=== PATIENT | female | born 1995 | race Caucasian/White ===

== ENCOUNTER 2017-02-19 23:59 | Emergency (ER) | payer OTHER ==
[~2017-02-19 23:59] MED LIST: ACETAMINOPHEN PO; DAPTOMYCIN500 MG IV; FAMOTIDINE PO; GUAIFENESIN DM118 ML PO; HYDROCORTISONE30 G2 EXT; LORTAB 5-325 M1 EACH PO; MOTRIN600 M2 PO; NICOTINE TRANSD21 MG EXT; NO MEDICATIONS; PAIN RELIEF650 MG PO; PERCOCET5/325 PO; PHENERGAN25 MG PO; REGLAN10 MG PO; REMERON15 MG PO; VISTARIL PO; ZYVOX600 MG PO
== END 2017-02-20 02:20 | disposition left against medical advice (07) ==
LOC: CED 23:59
DX: Z53.21 Procedure and treatment not carried out due to patient leaving prior to being seen by health care provider (principal)

== ENCOUNTER 2017-02-24 23:59 | Emergency (ER) | payer OTHER ==
[2017-02-25 01:28] LABS: BASOPHIL# 0.1 X10e3 (0-0.3); BASOPHIL% 0.4 % (0-2.5); DIFF IND YES; EOSINOPHIL# 0.1 X10e3 (0-0.7); EOSINOPHIL% 0.7 % (0.0-7.0); HEMATOCRIT 35.4 % (35.0-45.0); HEMOGLOBIN 11.7 gm/dL (12.0-16.0); LYMPHOCYTE# 2.7 X10e3 (1.0-3.5); LYMPHOCYTE% 17.4 % (17.0-45.0); MEAN CORPUSCULAR HEMOGLOBIN 29.1 PG (28-34); MEAN CORPUSCULAR HGB CONC 33.1 g/dL (30-36); MEAN PLATELET VOLUME 8.5 FL (6.5-11.5); MONOCYTE# 0.9 X10e3 (0-1.0); MONOCYTE% 5.8 % (3.0-12.0); NEUTROPHIL# 11.9 X10e3 (1.5-7.1); NEUTROPHIL% 75.7 % (40-75); PLATELET COUNT 336 X10e3 (140-420); RED BLOOD COUNT 4.02 X10e (3.90-5.30); RED CELL DISTRIBUTION WIDTH 15.2 % (11.0-15.5); WHITE BLOOD COUNT 15.7 X10e3 (4.0-10.5)
[2017-02-25 01:56] LABS: ANISOCYTOSIS SL; PLATELET ESTIMATE NORMAL (NORMAL); RBC NORMAL YES; SMUDGE CELLS 9 /100
== END 2017-02-25 02:00 | disposition home or self-care (01) ==
LOC: CED 23:59
PROVIDERS: Emergency Medicine
DX: L02.413 Cutaneous abscess of right upper limb (principal); F17.200 Nicotine dependence, unspecified, uncomplicated
CPT/HCPCS: 10060; 85025; 87040; 87070; 87077; 87186; 87205; 99283

== ENCOUNTER 2017-02-27 23:59 | Inpatient (IN) | payer OTHER ==
--- NOTE | ~2017-02-27 | CO ---
Unit #: [id number] #: [id number] Patient: YURIDIA KING [id number] [address] [address] [id number] I MR#: [id number] NAME: YURIDIA KING ROOM: 563 Age: 21 Sex: F Admission Date: 02/28/2017 : 1995 Attending Physician: Ulises Middleton M.D. Primary Care Physician: Primary Care Physician No Requesting Physician: Jacqueline Suh M.D. Consultation Date: 02/28/2017 CONSULTATION REPORT REASON FOR CONSULTATION Septic arthritis of sacroiliac joint. 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 In October of last year, she developed pseudomonas bacteremia and septic sacroiliac joint arthritis which was treated with IV antibiotics followed by transfer to [facility]. According to the patient, no surgery was done and she did receive antibiotics however she is not clear which one and for how long. Two days ago, she came to the ER with left wrist abscess which was drained which is growing MRSA. She came back later with progressive pain in the left side of the hip without any fever or chills. She had a fever of 102 apparently and was hospitalized. She is currently on vancomycin and cefepime. MRI of the pelvis is pending. Infectious Disease was consulted for further evaluation. Blood cultures are negative to date. Patient is fairly poor historian and is not interested in doing any details about current illness. According to her, she still uses IV heroin on a regular basis. PAST MEDICAL HISTORY 1. MRSA endocarditis, septic arthritis, septic pulmonary emboli. 2. Pseudomonas bacteremia with sacroiliac joint arthritis, treated at [facility]. 3. Hepatitis C. 4. IV drug use. 5. Medical noncompliance. 6. Anxiety and depression. HOME MEDICATIONS None. HOSPITAL MEDICATIONS 1. Vancomycin. 2. Cefepime. 3. Tylenol. 4. Bactroban. 5. Florastor. 6. Morphine ultra. 7. Phenergan. 8. IV fluids. ALLERGIES Unit #: [id number] #: [id number] Patient: YURIDIA KING None. SOCIAL HISTORY She lives with her father. She smokes cigarettes and uses heroin via IV route, free currently. She uses clean needles according to her. FAMILY HISTORY Negative and not contributory to the current illness. REVIEW OF SYSTEMS System review reveals left hip pain, fever, malaise, mild chill. No abdominal pain, diarrhea, dysuria, cough, chest pain, headache, mental status changes. PHYSICAL EXAMINATION VITAL SIGNS: Stable. Temperature 99.2, heart rate 100, respirations 18, blood pressure 120/60. T. max was recorded at 102.4 in the ER, about 24 ours ago. GENERAL: Young white female, who is awake and alert, in no acute distress. NECK: Supple. No JVD or edema. LUNGS: Clear. HEART: Normal. ABDOMEN: Soft, nontender. There is no rebound or guarding. Bowel sounds are normal. EXTREMITIES: Left heel wound had superficial abscess which has been drained. Range of motion of left wrist reveals in normal limits. She had some tenderness in the left hip with decreased range of motion. There is no obvious swelling or wound. NEUROLOGIC: Nonfocal. DIAGNOSTIC STUDIES LABORATORY: Urine drug screen was positive for amphetamines, marijuana and opiates. HIV test is negative. Lactic acid 1.3. Sodium 133, potassium 2.8, chloride 99, CO2 is 24, BUN 9, creatinine 0.6. White count 14.8, hemoglobin 11.4, platelets 308, neutrophils 77.8%. Wound culture from the wrist is growing MRSA. Blood cultures are negative at 24 hours. IMAGING: Chest x-ray shows no active disease. X-rays of the left hip shows normal findings. MRI is pending. IMPRESSION The main issue appears to be left wrist abscess due to MRSA which has been drained. The other issue is left hip pain which is chronic with a recent increase in pain. Relapse of sacroiliac arthritis is suspected. RECOMMENDATIONS 1. Pending cultures. 2. Agree with vancomycin and cefepime. 3. I agree with MRI of the hip. 4. Further recommendations will follow. Dictated by... Unit #: [id number] #: [id number] Patient: YURIDIA KING Charis Melo TD: 02/28/2017 18:43 JOB #: [id number] CONSULTATION REPORT Page 1 of 1 X Reji Aaron MD CONSULTATION REPORT
--- NOTE | ~2017-02-27 | CR150 ---
[facility] A Service of [facility] & [facility] RADIOLOGY TEXT RESULTS PATIENT: YURIDIA KING LOCATION: [facility] [id number] : 95 UNIT #: [id number] AGE: [address]: Jacqueline Suh MD SEX: F ORDER DR: [id number] [facility] [address] [facility]. [place], [place] [address] [id number] E MR#: [id number] Acc #: [id number] NAME: YURIDIA KING : 1995 SEX: F STUDY DATE/TIME: 02/28/2017 1:06 UNIT: [facility] ROOM: STUDY DESCRIPTION: CR Hip Min 2 Views Lt Attending Physician: Emilee Michaud M.D. Ordering Physician: Emilee Michaud M.D. Primary Care Physician: Primary Care Physician No MEDICAL IMAGING REPORT This report is preliminary unless electronic signature is present EXAM Left hip INDICATIONS Left hip pain for 2 days. History of septic arthritis. FINDINGS An AP view of the pelvis and a lateral view of the left hip were obtained and compared to 10/16/2016. The bones are normal. The joints are normal. IMPRESSION Normal left hip. Dictated by... Leo Fuentes M.D. THIS IS AN ELECTRONICALLY VERIFIED REPORT Leo Fuentes M.D. at 02/28/2017 5:30 AM ELIJAH/aries TD: 02/28/2017 03:59 JOB #: [id number] MEDICAL IMAGING REPORT Page 1 of 1 COPY
--- NOTE | ~2017-02-27 | EKG ---
PATIENT: YURIDIA KING UNIT #: [id number] Ventricular Rate: 105 BPM Atrial Rate: 105 BPM P-R Interval: 116 ms QRS Duration: 104 ms Q-T Interval: 332 ms QTC Calculation(Bezet): 438 ms P Willard: 56 degrees Calculated R Willard: 74 degrees Calculated T Willard: 42 degrees Diagnosis Line: Sinus tachycardia Diagnosis Line: Otherwise normal ECG Diagnosis Line: When compared with ECG of 08-NOV-2016 08:52, Diagnosis Line: No significant change was found Diagnosis Line: Confirmed by TYLER DAILY MD ([id number]) on 02/28/2017 Diagnosis Line: 10:49:32 PM INTERPRETING MD: ABIMBOLA GILL
--- NOTE | ~2017-02-27 | DS ---
Unit #: [id number] #: [id number] Patient: YURIDIA KING [id number] [address] [address] [id number] I MR#: [id number] NAME: YURIDIA KING ROOM: 563 Age: 21 Sex: F Admission Date: 02/28/2017 : 1995 Discharge Date: 02/28/2017 Attending Physician: Ulises Middleton M.D. Primary Care Physician: No Primary Care Physician DISCHARGE SUMMARY DISCHARGE DIAGNOSES 1. Noncompliance, patient is leaving against medical advice. 2. History of methicillin-resistant Staphylococcus aureus tricuspid valve endocarditis associated with septic arthritis and septic emboli per transesophageal echocardiogram in August 2016, also with Pseudomonas bacteremia with septic sacroiliac joint in October 2016. 3. Hepatitis C. 4. IV drug use. 5. Anxiety and depression. 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 PROCEDURE None. DIAGNOSTIC STUDIES LABORATORY: BMP with glucose of 121, BUN 9, creatinine 0.6, sodium 133, potassium 2.8, chloride 99, CO2 of 24, calcium 9. CBC with WBC of 14.8, RBC 3.91, hemoglobin 11.4, hematocrit 34.8, MCV 89.1, MCH 29.2, MCHC 32.7, RDW 14.4, platelets 308,000, MPV 7.4. IMAGING: Chest x-ray on February 28: Impression - no active disease. Hip x-ray on February 28: Impression - normal left hip. Patient has orders for MRI of the hip which has not been done. HOSPITAL COURSE The patient is a 21-year-old female with past medical history of heroin drug use, tricuspid valve endocarditis, resulting MRSA and pseudomonas, septic sacroiliac joint arthritis who presented to emergency department due to left hip pain as well as fever. The patient states that two days prior to admission she had experienced symptoms of malaise, increasing pain in the left hip. She was seen in the emergency department at that time for an abscess over the left wrist which was I and D in the emergency department. Cultures were positive for MRSA. Due to increasing pain in the left hip, she presented to the emergency department with a temperature of 102.4. The patient was noted to be hypokalemic with leukocytosis in the emergency department. Plain x-ray of the hip has been negative. She was admitted for high risk of septic arthritis in an ongoing IV drug use patient. Antibiotics with vancomycin and cefepime have been started. Cultures are pending. HIV status was assessed which was nonreactive. She was seen in consultation with Dr. Aaron of infectious disease. She had Unit #: [id number] #: [id number] Patient: YURIDIA KING been hospitalized under 24 hours at the time of my assessment. The patient states that she has ongoing back pain. Explained to patient our assessment and plan at this time with ongoing MRI assessment for her likely septic arthritis. She had no concern at that time. I was called back to the patient's room around 4 o'clock stating that patient had just used heroin in the room. Upon arrival to the room, a needle was found on her chest and a flushed syringe was in her midline. Of note, the saline flush is a different brand of flush that our hospital does not carry altogether. Patient was given Narcan and she did wake up and respond. When asked what was she doing in her room, she said she had no idea what was going on. She denied using drugs. She states that the saline flush was sitting on the table. Again, this saline flush is a different brand of saline that our hospital does not carry. She asked us why did we give her Narcan. I have told patient that at this time we need to leave her things with security for the rest of her hospitalization. She may not have any visitors in the room with her and she will have a one-on-one sitter with her as she is a high risk for overdose at our facility. The patient tells me that she did not want a stranger to be sitting in her room. She did not agree with this and will be leaving against medical advice. Patient's long-term prognosis is poor given her young age and poor insight into what is currently going on. Dictated by... Trenton Stewart PA-C for Charis Bynum TD: 03/01/2017 09:28 JOB #: [id number] DISCHARGE SUMMARY Page 1 of 1 X X DISCHARGE SUMMARY
--- NOTE | ~2017-02-27 | HP ---
Unit #: [id number] #: [id number] Patient: YURIDIA KING [id number] [address] [place], [place] [address] [id number] I MR#: [id number] NAME: YURIDIA KING ROOM: 40662 Age: 21 Sex: F Admission Date: 02/28/2017 : 1995 Attending Physician: Jacqueline Suh M.D. Primary Care Physician: No Primary Care Physician HISTORY AND PHYSICAL CHIEF COMPLAINT Fever and left hip pain. HISTORY This 21-year-old female with a history of heroin abuse, tricuspid valve endocarditis resulting in MRSA and pseudomonas, septic sacroiliac joint arthritis, is admitted for fever and left hip pain. The patient states that over the past two days she has experienced malaise with increasing pain in the left hip. She was actually seen in this emergency department on 02/24/2017 for an abscess over the left wrist which was I and D'd in the ER. Cultures were positive for MRSA. Due to increasing pain in the left hip, she presented to this emergency department late last evening with a temperature of 102.4. Unfortunately, we are having difficulty placing an IV, I am seeing the patient at 4:00 in the morning. Labs are notable for hypokalemia and leukocytosis. Plain x-rays of the hips are negative. PAST MEDICAL HISTORY 1. Admission 08/2016 for MRSA tricuspid valve endocarditis associated with septic arthritis and septic pulmonary emboli. BROCK at that time revealed mild to moderate TR with 2 to 3+ tricuspid valve vegetation and normal ejection fraction. 2. Readmission 10/2016 for pseudomonas bacteremia with septic sacroiliac joint. BROCK revealed moderate to severe TR with continued tricuspid valve vegetation. Patient was ultimately transferred to [facility]. She states that she was treated with antibiotics and did not require surgery. 3. Hepatitis C. 4. IV drug abuse. 5. Noncompliance. 6. Anxiety and depression. ALLERGIES No known drug allergies. HOME MEDICATIONS None. FAMILY HISTORY Negative for heart disease. SOCIAL HISTORY The patient lives with her father. She smokes one half pack per day of Unit #: [id number] #: [id number] Patient: YURIDIA KING tobacco. Last used heroin two days ago. She states that she does not use heroin on a daily basis. She states that she is using clean needles. REVIEW OF SYSTEMS Notable for left hip pain, malaise, hepatitis C, drug abuse, septic sacroiliac arthritis in the past. All other systems were reviewed and are otherwise negative. PHYSICAL EXAMINATION GENERAL APPEARANCE: 21-year-old female in no acute distress. VITAL SIGNS: Temperature 102.4, pulse 142, respirations 19, blood pressure 131/75. O2 saturation 100% on room air. HEENT: Eyes PERRLA. Extraocular muscles are intact. Pharynx is benign. NECK: Supple without adenopathy or thyromegaly. CHEST: Clear. BACK: With tenderness over the left SI region. I am able to move the patient's left hip and this causes pain in that area as well. CARDIAC: Normal S1 and S2 with a soft systolic murmur best heard at the left upper sternal border. ABDOMEN: Bowel sounds are present. No hepatosplenomegaly, tenderness or masses. EXTREMITIES: Without edema. Pedal pulses are present. SKIN: No rashes. There is a wound over the left wrist without surrounding erythema. No definite splinter hemorrhages. NEUROLOGIC EXAM: The patient is awake, alert, oriented. Cranial nerves are intact. She has equal strength throughout. DIAGNOSTIC STUDIES LABORATORY: Hematocrit is 34.8, white blood count 14.8, normal platelet count. INR 1.1. SMA-7 - glucose 121, sodium 133, potassium 2.8, chloride is 99. Lactic acid normal. Point of care beta hcg is negative. IMAGING: Plain x-rays of the hip negative. Chest x-ray - no acute disease. ASSESSMENT 1. Fever with left hip pain: Rule out septic left hip infection, rule out septic left sacroiliac joint arthritis. 2. Heroin abuse. 3. Methicillin resistant Staph aureus infection left wrist and abscess: Underwent an incision and drainage four days ago in the emergency room. 4. History of Pseudomonas and methicillin resistant Staph aureus septic arthritis with history of tricuspid valve endocarditis and septic pulmonary emboli. 5. Hepatitis C. 6. Hypokalemia. PLANS 1. Vancomycin and cefepime pending cultures. Unfortunately, unable to place an IV in the ER. I will ask for a midline to be placed. 2. Check HIV and liver function tests. 3. Urinalysis. Unit #: [id number] #: [id number] Patient: YURIDIA KING 4. Urine tox screen. 5. MRI of the left hip. 6. Infectious disease consultation. 7. Replace potassium and check magnesium. 8. jail prognosis is extremely guarded if patient continues to abuse drugs. Dictated by Jacqueline Suh M.D. AML/df TD: 02/28/2017 06:58 JOB #: [id number] HISTORY AND PHYSICAL Page 1 of 1 X Jacqueline Suh MD X HISTORY AND PHYSICAL
--- NOTE | ~2017-02-27 | CR72 ---
[facility] A Service of [facility] & [facility] RADIOLOGY TEXT RESULTS PATIENT: YURIDIA KING LOCATION: [facility] [id number] : [birth year] UNIT #: [id number] AGE: [address]: Jacqueline Suh MD SEX: F ORDER DR: [id number] [facility] [address] [facility] [place], [place] [address] [id number] E MR#: [id number] Acc #: [id number] NAME: YURIDIA KING : 1995 SEX: F STUDY DATE/TIME: 02/28/2017 1:05 UNIT: [facility] ROOM: STUDY DESCRIPTION: CR Chest Single View Portable Attending Physician: Emilee Michaud M.D. Ordering Physician: Emilee Michaud M.D. Primary Care Physician: Primary Care Physician No MEDICAL IMAGING REPORT This report is preliminary unless electronic signature is present EXAM Portable chest. INDICATION Shortness of air x2 days. FINDINGS Portable view of the chest was obtained and compared to 11/08/2016. The heart size and vascularity are normal and the lungs are clear. The bones are unremarkable. IMPRESSION No active disease. Dictated by... Leo Fuentes M.D. THIS IS AN ELECTRONICALLY VERIFIED REPORT Leo Fuentes M.D. at 02/28/2017 5:30 AM ELIJAH/mark TD: 02/28/2017 04:02 JOB #: [id number] MEDICAL IMAGING REPORT Page 1 of 1 COPY
[2017-02-27 23:09] LABS: BASOPHIL# 0.1 X10e3 (0-0.3); BASOPHIL% 0.5 % (0-2.5); EOSINOPHIL# 0.1 X10e3 (0-0.7); EOSINOPHIL% 0.6 % (0.0-7.0); HEMATOCRIT 34.8 % (35.0-45.0); HEMOGLOBIN 11.4 gm/dL (12.0-16.0); LYMPHOCYTE# 2.5 X10e3 (1.0-3.5); LYMPHOCYTE% 16.5 % (17.0-45.0); MEAN CELL VOLUME 89.1 FL (83-96); MEAN CORPUSCULAR HEMOGLOBIN 29.2 PG (28-34); MEAN CORPUSCULAR HGB CONC 32.7 g/dL (30-36); MEAN PLATELET VOLUME 7.4 FL (6.5-11.5); MONOCYTE# 0.7 X10e3 (0-1.0); MONOCYTE% 4.6 % (3.0-12.0); NEUTROPHIL# 11.5 X10e3 (1.5-7.1); NEUTROPHIL% 77.8 % (40-75); PLATELET COUNT 308 X10e3 (140-420); RED BLOOD COUNT 3.91 X10e (3.90-5.30); RED CELL DISTRIBUTION WIDTH 14.9 % (11.0-15.5); WHITE BLOOD COUNT 14.8 X10e3 (4.0-10.5)
[2017-02-27 23:13] LABS: DIFF IND NO
[2017-02-27 23:16] LABS: INR 1.1; PROTHROMBIN TIME (PATIENT) 11.4 SECONDS (9.6-11.5)
[2017-02-27 23:28] LABS: CREATININE SERUM 0.6 mg/dL (0.6-1.4); GLOM FILT RATE Estimated 130.3 mL/min (>60)
[2017-02-27 23:32] LABS: POTASSIUM 2.8 mmol/L (3.5-5.1)
[2017-02-28] MEDS ORDERED: NO MEDICATIONS (08:48)
[2017-02-28 14:30] LABS: AMPHETAMINE POS (NEG); BARBITURATES NEG (NEG); BENZODIAZEPINES NEG (NEG); COCAINE NEG (NEG); MARIJUANA POS (NEG); OPIATES POS (NEG); TRICYCLIC ANTIDEPRESSANTS NEG (NEG); U METHADONE NEG (NEG)
[2017-02-28 14:41] LABS: URINE APPEARANCE CLEAR; URINE BILIRUBIN NEG (NEG); URINE BLOOD 1+ (NEG); URINE COLOR YELLOW; URINE GLUCOSE NEG (NEG); URINE KETONE NEG (NEG); URINE LEUKOCYTE ESTERASE NEG (NEG); URINE NITRATE NEG (NEG); URINE PROTEIN NEG (NEG); URINE SPECIFIC GRAVITY 1.013 (1.003-1.035)
[2017-02-28 14:44] LABS: U HYALINE CASTS AUWI 0-2 /[LPF]; URINE BACTERIA AUWI NEG (NEGATIVE); URINE SQUAMOUS EPITHELIAL CELL OCC /[HPF]
[2017-02-28 14:48] LABS: CULTURE INDICATED? NO; URINE SOURCE CLEAN CATCH
[2017-02-28 16:16] LABS: POTASSIUM 3.8 mmol/L (3.5-5.1)
== END 2017-02-28 16:10 | disposition left against medical advice (07) | DRG 549 ==
LOC: CED 23:59 → CEDOF 02-28 04:10 → C5C 02-28 08:40
PROVIDERS: Emergency Medicine; Family Medicine
DX: M00.9 Pyogenic arthritis, unspecified (principal); L02.414 Cutaneous abscess of left upper limb; F32.9 Major depressive disorder, single episode, unspecified; B19.20 Unspecified viral hepatitis C without hepatic coma; F11.10 Opioid abuse, uncomplicated; F41.9 Anxiety disorder, unspecified; F17.210 Nicotine dependence, cigarettes, uncomplicated; E87.6 Hypokalemia; B95.62 Methicillin resistant Staphylococcus aureus infection as the cause of diseases classified elsewhere; Z91.19 Patient's noncompliance with other medical treatment and regimen; D72.829 Elevated white blood cell count, unspecified
CPT/HCPCS: 71010; 73502; 80048; 80307; 81003; 83605; 83735; 84132; 84703; 85025; 85610; 85652; 86140; 87040; 87806; 93005; 99285; J0692; J2310; J3370

== ENCOUNTER 2017-03-25 19:46 | Emergency (ER) | payer OTHER | END 2017-03-25 20:35 | disposition left against medical advice (07) | LOC: CED 19:46 | DX: A41.9 Sepsis, unspecified organism (principal); M00.9 Pyogenic arthritis, unspecified; F19.90 Other psychoactive substance use, unspecified, uncomplicated; I10 Essential (primary) hypertension; F17.200 Nicotine dependence, unspecified, uncomplicated; Z86.14 Personal history of Methicillin resistant Staphylococcus aureus infection | CPT/HCPCS: 99285 ==

== ENCOUNTER 2017-07-22 23:33 | Emergency (ER) | payer OTHER ==
[~2017-07-22] VITALS: Ht 165.1 cm; Wt 59.0 kg
== END 2017-07-23 00:54 | disposition home or self-care (01) ==
LOC: SED 23:33
DX: Z20.2 Contact with and (suspected) exposure to infections with a predominantly sexual mode of transmission (principal); F17.210 Nicotine dependence, cigarettes, uncomplicated; F41.8 Other specified anxiety disorders; Z86.19 Personal history of other infectious and parasitic diseases
CPT/HCPCS: 96372; 99283; J0696